=== PATIENT | female | born 1980 | race Two or more races ===

== ENCOUNTER 2019-08-29 06:02 | Emergency (ER) | payer SELFPAY ==
[~2019-08-29] VITALS: Ht 170.2 cm; Wt 55.8 kg
--- NOTE | 2019-08-29 06:20 | NUR ---
pt presented to er ambulatory with steady gait for c/o abdominal pain with nausea started 3hrs [employer] aa/ox4. able to speak in complete sentences. follows command respirations even and unlabored no s/s of cardiovascular distress SR up for safety. Bed locked, lowest position. Instructed pt to call nurse for assistance monitored accordingly Will continue to monitor pt
[2019-08-29 06:33] LABS: *URINE HCG, QUAL NEGATIVE (NEGATIVE)
[2019-08-29 06:34] LABS: *BILIRUBIN,URIN NEGATIVE (NEGATIVE); *BLOOD, URINE NEGATIVE (NEGATIVE); *CLARITY,URINE CLEAR (CLEAR); *COLOR,URINE YELLOW (YELLOW); *KETONES,URINE NEGATIVE (NEGATIVE); *UROBILINOGEN,URINE 0.2 E.U./dl (NORMAL); LEUKOCYTE ESTERASE ,URINE NEGATIVE (NEGATIVE); NITRITE, URINE NEGATIVE (NEGATIVE); UGLUCOSE NEGATIVE (NEGATIVE)
--- NOTE | 2019-08-29 06:46 | NUR ---
Dr. Woods at bedside for MSE
--- NOTE | 2019-08-29 06:56 | NUR ---
report given to MARCELLO Mosquera
[2019-08-29] MEDS ORDERED: PANTOPRAZOLE SODIUM 40 MG TABLET.DR PO ONE ×2 (07:00→07:05)
[2019-08-29] MEDS ORDERED: MAG HYDROX/AL HYDROX/SIMETH 30 ML LIQUID UDC PO ONE (07:00)
[2019-08-29] MEDS ORDERED: ONDANSETRON ODT 4 MG TAB.RAPDIS SL ONE (07:00)
[2019-08-29] MEDS ORDERED: LIDOCAINE VISCUS 2% 15 ML UDC MM ONE (07:00)
[2019-08-29] MEDS ORDERED: MAG HYDROX/AL HYDROX/SIMETH 30 ML LIQUID UDC ONE (07:05)
[2019-08-29] MEDS ORDERED: ONDANSETRON ODT 4 MG TAB.RAPDIS ONE (07:05)
[2019-08-29] MEDS ORDERED: LIDOCAINE VISCUS 2% 15 ML UDC ONE (07:05)
[2019-08-29 07:54] LABS: BASOPHILS % (AUTO) 0.6 % (0.0-2.0); HEMATOCRIT 33.8 % (31.2-41.9); LYMPHOCYTES # (AUTO) 0.9 K/uL (20.0-40.0); LYMPHOCYTES % (AUTO) 17.2 % (20.5-51.5); MEAN CORPUSCULAR HEMOGLOBIN 26.8 uug (24.7-32.8); MEAN CORPUSCULAR HGB CONC 33 g/dL (32.3-35.6); MONOCYTES # (AUTO) 0.4 K/uL (2.0-10.0); MONOCYTES % (AUTO) 6.6 % (0.0-11.0); NEUTROPHILS # (AUTO) 4.1 K/uL (1.8-8.9); NEUTROPHILS % (AUTO) 75.6 % (38.5-71.5); PLATELET COUNT (AUTO) 207 K/uL (179-408); RED BLOOD CELL COUNT(AUTO) 4.12 MIL/uL (3.63-4.92); WHITE BLOOD COUNT (AUTO) 5.5 K/uL (3.8-11.8)
[2019-08-29 07:58] LABS: CREATININE 0.8 mg/dL (0.6-1.3); POTASSIUM 3.9 mmol/L (3.5-5.1)
[2019-08-29 08:03] LABS: BILIRUBIN,DIRECT 0.1 mg/dL (0.0-0.2); BILIRUBIN,TOTAL 0.3 mg/dL (0.2-1.0); TOTAL PROTEIN, SERUM 7.2 g/dL (6.4-8.2)
--- NOTE | 2019-08-29 08:08 | NUR ---
Patient discharged to home in stable condition. Written and verbal after care instructions given. Patient verbalizes understanding of instructions. Stressed follow up or return to ER for worsening s/s. Patient ambulating with steady gait. NAD noted
[2019-08-29 08:09] VITALS: BP 124/71
== END 2019-08-29 08:08 | disposition home or self-care (01) ==
LOC: ER 06:08
DX: K29.70 Gastritis, unspecified, without bleeding (principal); R42 Dizziness and giddiness; Z86.69 Personal history of other diseases of the nervous system and sense organs
CPT/HCPCS: 36415; 83690; 84703; 85025; 93005; A4663; Q0162